=== PATIENT | male | born 1980 | race Caucasian/White ===

== ENCOUNTER 2017-11-27 18:16 | Emergency (ER) | payer MEDICAID, OTHER ==
[~2017-11-27] VITALS: Ht 188 cm; Wt 84.8 kg
[2017-11-27] MEDS ORDERED: BACITRACIN ZINC OINT 500U/GM, 0.9 GM ONE (20:30)
[2017-11-27] MEDS ORDERED: SULFAMETH./TRIMETHOPRIM DS 800MG/160MG TABLET ONE (20:59)
[2017-11-27] MEDS ORDERED: SULFAMETH./TRIMETHOPRIM DS 800MG/160MG TABLET PO ONE (21:00)
[2017-11-27 21:02] VITALS: BP 145/90
== END 2017-11-27 21:28 | disposition home or self-care (01) ==
LOC: ED 21:05
DX: L02.511 Cutaneous abscess of right hand (principal); F17.210 Nicotine dependence, cigarettes, uncomplicated
CPT/HCPCS: 10060; 99283

== ENCOUNTER 2017-12-28 12:22 | Emergency (ER) | payer MEDICAID ==
[~2017-12-28] VITALS: Ht 188 cm; Wt 82.7 kg
[2017-12-28 12:28] VITALS: BP 123/71
== END 2017-12-28 13:33 | disposition home or self-care (01) ==
LOC: ED 13:27
DX: L03.113 Cellulitis of right upper limb (principal)
CPT/HCPCS: 99283